=== PATIENT | male | born 1960 | race Caucasian/White ===

== ENCOUNTER 2016-06-13 06:30 | Day surgery (SDC) | payer OTHER ==
[2016-06-13] MEDS ORDERED: Lactated Ringers 1,000 ML IV SCH ×2 (07:00→08:45)
[2016-06-13] MEDS ORDERED: Lidocaine 2% 5 ML SDV ONE (07:11)
[2016-06-13] MEDS ORDERED: fentaNYL 100 MCG/2 ML SDV ONE ×2 (07:11→08:00)
[2016-06-13] MEDS ORDERED: Propofol 200 MG/20 ML SDV ONE ×2 (07:11→08:06)
--- NOTE | 2016-06-13 07:12 | PCM.PREANE ---
Preanesthetic Assessment - Anesthesia/Transfusion/Family Hx Anesthesia History: Prior Anesthesia Without Reaction Family History of Anesthesia Reaction: No Transfusion History: No Prior Transfusion(s) - Review of Systems General: No Symptoms Pulmonary: No Symptoms Cardiovascular: No Symptoms Gastrointestinal: No symptoms Neurological: No Symptoms Other: Reports: None - Physical Assessment NPO Status Date: 06/12/16 (except sip with meds this am) O2 Sat by Pulse Oximetry: 95 Respiratory Rate: 16 Vital Signs: Last Vital Signs Temp 36 C 06/13/16 06:40 Pulse 74 06/13/16 06:40 Resp 16 06/13/16 06:40 BP 138/86 06/13/16 06:40 Pulse Ox 95 06/13/16 06:40 Height: 1.88 m Weight: 147.871 kg ASA Class: 3 Mental Status: Alert & Oriented x3 Dentition: Reports: Normal Dentition Lungs: Clear to auscultation Cardiovascular: Regular Rate - Allergies Allergies/Adverse Reactions: Allergies Allergy/AdvReac Type Severity Reaction Status Date / Time Penicillins Allergy Cannot Verified 06/08/16 13:10 Remember - Acknowledgements Anesthesia Type Planned: MAC Pt an Appropriate Candidate for the Planned Anesthesia: Yes Alternatives and Risks of Anesthesia Discussed w Pt/Guardian: Yes Pt/Guardian Understands and Agrees with Anesthesia Plan: Yes PreAnesthesia Questionnaire HEENT History: Other HEENT History: wears glasses Cardiovascular History: Reports: High cholesterol, Hypertension Respiratory History: Reports: COPD, Sleep apnea Other Respiratory History: uses CPAP Gastrointestinal History: Reports: None Genitourinary History: Reports: None Musculoskeletal History: Reports: Fracture Other Musculoskeletal History: hx of fx hand Neurological History: Reports: None Other Neuro History: avm, surgically taken care of with gamma knife Psychiatric History: Reports: None Endocrine/Metabolic History: Reports: Diabetes, type II, Hypothyroidism, Obesity /BMI 30+ Hematologic History: Reports: None Immunologic History: Reports: None Oncologic (Cancer) History: Reports: None Dermatologic History: Reports: None - Infectious Disease History Infectious Disease History: Reports: None - Past Surgical History Head Surgeries/Procedures: Reports: None HEENT Surgical History: Reports: Tonsillectomy Cardiovascular Surgical History: Reports: Aneurysm Other Cardiovascular Surgeries/Procedures: hx of brain aneurysm (ABM), treated with Gamma Knife 14 years ago. No problems since Respiratory Surgical History: Reports: None GI Surgical History: Reports: Hernia, abdominal Other GI Surgeries/Procedures: hx of ventral hernia Male Surgical History: Reports: Vasectomy Endocrine Surgical History: Reports: None Neurological Surgical History: Reports: None Musculoskeletal Surgical History: Reports: Arthroscopic knee Oncologic Surgical History: Reports: None Dermatological Surgical History: Reports: None - SUBSTANCE USE Smoking Status *Q: Former Smoker Tobacco Use Within Last Twelve Months: No Second Hand Smoke Exposure: No Days Per Week of Alcohol Use: 0 Number of Drinks Per Day: 1 Total Drinks Per Week: 0 Recreational Drug Use History: No - HOME MEDS Home Medications: Home Meds Cyanocobalamin (Vitamin B-12) [B-12] 1 tab PO DAILY 07/28/14 [History] Fenofibrate 145 mg PO DAILY 07/28/14 [History] Hydrochlorothiazide 1 tab PO DAILY 07/28/14 [History] Levothyroxine Sodium [Levoxyl] 100 mcg PO DAILY 07/28/14 [History] atorvaSTATin [Lipitor] 40 mg PO BEDTIME 07/28/14 [History] metFORMIN [Glucophage] 1 tab PO BID 07/28/14 [History] Aspirin [Adult Low Dose Aspirin EC] 81 mg PO DAILY #30 tablet. 07/29/14 [Rx] Lisinopril 1 tab PO DAILY 06/08/16 [History] Umeclidinium Brm/Vilanterol Tr [Anoro Ellipta 62.5-25 Mcg INH] 1 puff INH DAILY 06/08/16 [History] - CURRENT (IN HOUSE) MEDS Current Meds: Current Medications Lactated Ringer's (Ringers, Lactated) 1,000 mls @ 125 mls/hr IV ASDIRECTED [facility] Last Admin: 06/13/16 06:42 Dose: 125 mls/hr Preanesthetic Assessment - ANESTHESIA/TRANSFUSION/FAMILY HX Anesthesia/Transfusion History: No Prior Transfusion(s), Prior Anesthesia Family History of Anesthesia Reaction: No - PHYSICAL ASSESSMENT O2 Sat by Pulse Oximetry: 95 RR: 16 Vital Signs: Last Vital Signs Temp 36 C 06/13/16 06:40 Pulse 74 06/13/16 06:40 Resp 16 06/13/16 06:40 BP 138/86 06/13/16 06:40 Pulse Ox 95 06/13/16 06:40 Height: 1.88 m Weight: 147.871 kg - ALLERGIES Allergies/Adverse Reactions: Allergies Allergy/AdvReac Type Severity Reaction Status Date / Time Penicillins Allergy Cannot Verified 06/08/16 13:10 Remember
--- NOTE | 2016-06-13 08:36 | PCM.OPNOTE ---
- General Post-Op/Procedure Note Date of Surgery/Procedure: 06/13/16 Operative Procedure(s): Colonoscopy with cold descending and cold rectal polypectomies Pre Op Diagnosis: Desire for colorectal cancer screening. Post-Op Diagnosis: Descending colon polyp. Rectal polyp. Anesthesia Technique: MAC (ASA III) Primary Surgeon: Marco A Hector Condition: Good Free Text/Narrative:: Dictation [id number]
--- NOTE | 2016-06-13 08:56 | OR ---
SURGEON: Marco A Hector M.D. DATE OF PROCEDURE: 06/13/2016 OPERATION PERFORMED: Colonoscopy with cold descending colon and cold rectal polypectomy. ANESTHESIA: MAC. ASA CLASSIFICATION: III. PREOPERATIVE DIAGNOSIS: Desire for colorectal cancer screening. POSTOPERATIVE DIAGNOSES: 1. Descending colon polyp. 2. Proximal rectal polyp. DESCRIPTION OF PROCEDURE: The patient was taken to the endoscopy room, positioned on the endoscopy table in the left lateral decubitus position. Time-out was called for appropriate identification of the patient and procedure. Monitored anesthesia care was provided. The colonoscope was inserted into the rectum and advanced with minimal difficulty to the cecum. Despite multiple maneuvers, we were never able to retroflex the colonoscope in the cecum. It was elected to withdraw the scope. The cecum was identified by both internal landmarks and external pressure. The colonoscope was then slowly withdrawn carefully visualizing the cecum, ascending colon, hepatic flexure, transverse colon, and splenic flexure. One polyp was encountered in the descending colon and removed with multiple bites of the cold biopsy forceps. The remainder of the descending colon and sigmoid colon again showed no tumors, polyps, or diverticula. No angiodysplastic changes or inflammatory bowel disease was noted. The colonoscope was then withdrawn to the proximal rectum where a second polyp was identified and again removed with the cold biopsy forceps. The colonoscope was withdrawn to the distal rectum and retroflexed to visualize the anal orifice from above. No tumors, polyps, or acute hemorrhoidal changes were noted. The colonoscope was then straightened, the rectum aspirated, and colonoscope was removed. The patient tolerated the procedure well and was taken to recovery room in stable condition. JUDITH / SVETLANA /[id number]
[2016-06-13 09:01] VITALS: BP 136/83
--- NOTE | 2016-06-13 10:06 | PCM.POSTAN ---
POST ANESTHESIA ASSESSMENT - MENTAL STATUS Mental Status: alert, oriented - RESPIRATORY Respiratory Status: respiratory rate WNL, airway patent - CARDIOVASCULAR CV Status: pulse rate WNL, blood pressure stable - GASTROINTESTINAL GI Status: no symptoms - POST OP HYDRATION Hydration Status: adequate & stable
--- NOTE | 2016-06-13 10:06 | PCM48HPAN ---
Post Anesthesia Note - EVALUATION WITHIN 48HRS OF ANESTHETIC Vital Signs in Normal Range: Yes Patient Participated in Evaluation: Yes Respiratory Function Stable: Yes Airway Patent: Yes Cardiovascular Function Stable: Yes Hydration Status Stable: Yes Pain Control Satisfactory: Yes Nausea and Vomiting Control Satisfactory: Yes Mental Status Recovered: Yes
== END 2016-06-13 09:27 | disposition home or self-care (01) ==
LOC: MW.SDS 06:30
PROVIDERS: ATTEND Surgery
PROC: 0DBM8ZZ Excision of Descending Colon, Via Natural or Artificial Opening Endoscopic (ICD-10-PCS; principal; 2016-06-13)
DX: Z12.11 Encounter for screening for malignant neoplasm of colon (principal); D12.4 Benign neoplasm of descending colon; K62.1 Rectal polyp; E11.9 Type 2 diabetes mellitus without complications; I10 Essential (primary) hypertension; E78.00 Pure hypercholesterolemia, unspecified; E78.5 Hyperlipidemia, unspecified; E03.9 Hypothyroidism, unspecified; E66.01 Morbid (severe) obesity due to excess calories; G47.33 Obstructive sleep apnea (adult) (pediatric); J44.9 Chronic obstructive pulmonary disease, unspecified; Z87.440 Personal history of urinary (tract) infections; Z87.891 Personal history of nicotine dependence; Z80.0 Family history of malignant neoplasm of digestive organs; Z88.0 Allergy status to penicillin; Z79.82 Long term (current) use of aspirin; Z79.84 Long term (current) use of oral hypoglycemic drugs; Z79.899 Other long term (current) drug therapy; Z98.52 Vasectomy status; Z90.89 Acquired absence of other organs; Z98.890 Other specified postprocedural states; Z68.41 Body mass index [BMI] 40.0-44.9, adult
CPT/HCPCS: 45380; J3010; J7120; 00810; 88305; J2704

== ENCOUNTER 2018-08-15 07:09 | Day surgery (SDC) | payer OTHER ==
[~2018-08-15 07:09] MED LIST: Lactated Ringers 1,000 ML IV SCH
[2018-08-15] MEDS ORDERED: Lidocaine 2% 5 ML SDV ONE (07:22)
[2018-08-15] MEDS ORDERED: Dexamethasone 4 MG/ML 5 ML MDV ONE (07:22)
[2018-08-15] MEDS ORDERED: Midazolam 1 MG/ML 2 ML SDV ONE (07:22)
[2018-08-15] MEDS ORDERED: fentaNYL 100 MCG/2 ML SDV ONE (07:22)
[2018-08-15] MEDS ORDERED: Propofol 200 MG/20 ML SDV ONE (07:22)
[2018-08-15] MEDS ORDERED: Ondansetron 4 MG/2 ML SDV ONE (07:22)
[2018-08-15] MEDS ORDERED: Lidocaine 1% 20 ML MDV ONE (07:34)
--- NOTE | 2018-08-15 07:59 | PCM.PREANE ---
<FannyOvi F - Last Filed: 08/15/18 08:04> Preanesthetic Assessment - Anesthesia/Transfusion/Family Hx Family History of Anesthesia Reaction: No - Review of Systems General: No Symptoms Pulmonary: No Symptoms Cardiovascular: No Symptoms Gastrointestinal: No Symptoms Neurological: No Symptoms Other: Reports: None - Physical Assessment NPO Status Date: 08/14/18 ASA Class: 3 Mental Status: Alert & Oriented x3 Airway Class: Mallampati = 2 Dentition: Reports: Normal Dentition ROM/Head Extension: Full Lungs: Clear to Auscultation, Normal Respiratory Effort Cardiovascular: Regular Rate, Regular Rhythm - Allergies Allergies/Adverse Reactions: Allergies Allergy/AdvReac Type Severity Reaction Status Date / Time Penicillins Allergy Cannot Verified 08/09/18 07:57 Remember - Blood Blood Available: No - Anesthesia Plan Pre-Op Medication Ordered: None - Acknowledgements Anesthesia Type Planned: General Anesthesia, Regional Block Pt an Appropriate Candidate for the Planned Anesthesia: Yes Alternatives and Risks of Anesthesia Discussed w Pt/Guardian: Yes Pt/Guardian Understands and Agrees with Anesthesia Plan: Yes Additional Comments: anes prob list: COPD- FEV1=67% ptedicted, LBC70-46=90% predicted. rm air spo2=94 , no diffusion defect. SEVERO- AHI=9.8 (mild), does not use CPAP although it was recommended. HTN, thyroid replacement, DM2- sugar today 140 PLAN: GET, not a candidate for ISB unless pt willing to be admitted overnight with hospital full face CPAP mask. PreAnesthesia Questionnaire - HOME MEDS Home Medications: Home Meds Cyanocobalamin (Vitamin B-12) [B-12] 1 tab PO DAILY 07/28/14 [History] Fenofibrate 160 mg PO DAILY 07/28/14 [History] Levothyroxine Sodium [Levoxyl] 100 mcg PO DAILY 07/28/14 [History] atorvaSTATin [Lipitor] 40 mg PO BEDTIME 07/28/14 [History] hydroCHLOROthiazide [Hydrochlorothiazide] 1 tab PO DAILY 07/28/14 [History] metFORMIN [Glucophage] 1 tab PO BID 07/28/14 [History] Aspirin [Adult Low Dose Aspirin EC] 81 mg PO DAILY #30 tablet. 07/29/14 [Rx] Lisinopril 10 mg PO DAILY 06/08/16 [History] Diclofenac Sodium [Voltaren] 75 mg PO BID PRN 08/09/18 [History] Empagliflozin [Jardiance] 25 mg PO DAILY 08/09/18 [History] Glycopyrrolate/Formoterol Fum [Bevespi Aerosphere Inhaler] 2 puff INH BID [History] - CURRENT (IN HOUSE) MEDS Current Meds: Current Medications Hydrocodone Bitart/Acetaminophen ([place] 325-10 Mg) 1 - 2 tab PO Q4H PRN PRN Reason: Pain Clindamycin Phosphate 900 mg/ (Sodium Chloride) 56 mls @ 100 mls/hr IV ONCALL TABATHA Lactated Ringer's (Ringers, Lactated) 1,000 mls @ 100 mls/hr IV ASDIRECTED [facility] Ketorolac Tromethamine (Toradol) 10 mg PO Q6H PRN PRN Reason: Pain Stop: 08/20/18 10:01 Discontinued Medications Dexamethasone (Dexamethasone) Confirm Administered Dose 20 mg .ROUTE .STK-MED ONE Stop: 08/15/18 07:23 Fentanyl (Sublimaze) Confirm Administered Dose 100 mcg .ROUTE .STK-MED ONE Stop: 08/15/18 07:23 Acetaminophen (Ofirmev) Confirm Administered Dose 100 mls @ as directed IV .STK- MED ONE Stop: 08/15/18 07:35 Lidocaine (Xylocaine-Mpf 2%) Confirm Administered Dose 5 ml .ROUTE .STK-MED ONE Stop: 08/15/18 07:23 Lidocaine HCl (Xylocaine 1%) Confirm Administered Dose 20 ml .ROUTE .STK-MED ONE Stop: 08/15/18 07:35 Midazolam HCl (Versed 1 Mg/Ml) Confirm Administered Dose 2 mg .ROUTE .STK-MED ONE Stop: 08/15/18 07:23 Ondansetron HCl (Zofran) Confirm Administered Dose 4 mg .ROUTE .STK-MED ONE Stop: 08/15/18 07:23 Propofol (Diprivan 20 Ml) Confirm Administered Dose 200 mg .ROUTE .STK-MED ONE Stop: 08/15/18 07:23 Succinylcholine Chloride (Succinylcholine Chloride) Confirm Administered Dose 200 mg .ROUTE .STK-MED ONE Stop: 08/15/18 07:24 <[place] S - Last Filed: 08/15/18 09:49> Preanesthetic Assessment - Anesthesia/Transfusion/Family Hx Anesthesia History: Prior Anesthesia Without Reaction Transfusion History: No Prior Transfusion(s) - Physical Assessment Height: 1.88 m Weight: 149.685 kg - Acknowledgements Anesthesia Type Planned: General Anesthesia, Regional Block Pt an Appropriate Candidate for the Planned Anesthesia: Yes Alternatives and Risks of Anesthesia Discussed w Pt/Guardian: Yes Pt/Guardian Understands and Agrees with Anesthesia Plan: Yes PreAnesthesia Questionnaire HEENT History: Reports: Other (See Below) Other HEENT History: wears glasses for driving Cardiovascular History: Reports: High Cholesterol, Hypertension Respiratory History: Reports: COPD, Sleep Apnea Other Respiratory History: does not use CPAP Gastrointestinal History: Reports: Colon Polyp Genitourinary History: Reports: None Musculoskeletal History: Reports: Fracture Other Musculoskeletal History: hx of fx knuckle on rt hand Neurological History: Reports: None Other Neuro History: ABM, surgically taken care of with gamma knife Psychiatric History: Reports: None Endocrine/Metabolic History: Reports: Diabetes, Type II, Hypothyroidism, Obesity /BMI 30+ Hematologic History: Reports: None Immunologic History: Reports: None Oncologic (Cancer) History: Reports: None Dermatologic History: Reports: None - Infectious Disease History Infectious Disease History: Reports: None - Past Surgical History Head Surgeries/Procedures: Reports: None HEENT Surgical History: Reports: Tonsillectomy Cardiovascular Surgical History: Reports: Aneurysm Other Cardiovascular Surgeries/Procedures: hx of brain aneurysm (ABM), treated with Gamma Knife. No problems since Respiratory Surgical History: Reports: None GI Surgical History: Reports: Colonoscopy, Hernia, Abdominal Other GI Surgeries/Procedures: hx of ventral hernia repair Male Surgical History: Reports: Vasectomy Endocrine Surgical History: Reports: None Neurological Surgical History: Reports: None Musculoskeletal Surgical History: Reports: Arthroscopic Knee Oncologic Surgical History: Reports: None Dermatological Surgical History: Reports: None - SUBSTANCE USE Smoking Status *Q: Former Smoker Recreational Drug Use History: No
[2018-08-15] MEDS ORDERED: Clindamycin Phosphate in D5W 900 MG in Premix Bag 1 BAG IV SCH ×2 (08:52)
[2018-08-15] MEDS ORDERED: HYDROmorphone 2 MG/ML Syringe ONE (09:19)
[2018-08-15] MEDS ORDERED: Esmolol 100 MG/10 ML SDV ONE (09:35)
[2018-08-15] MEDS ORDERED: Ondansetron 4 MG/2 ML SDV IVPUSH PRN (09:52)
[2018-08-15] MEDS ORDERED: HYDROmorphone 2 MG/ML SDV IVPUSH PRN (09:52)
[2018-08-15] MEDS ORDERED: Acetaminophen/HYDROcodone 325-10 MG Tab PO PRN (10:00)
[2018-08-15] MEDS ORDERED: Ketorolac 10 MG Tab PO PRN (10:00)
[2018-08-15] MEDS ORDERED: Neostigmine Methylsulfate 1 MG/ML 5 ML Syringe ONE (10:14)
[2018-08-15] MEDS ORDERED: Glycopyrrolate 0.2 MG/ML SDV ONE (10:14)
--- NOTE | 2018-08-15 11:27 | PCM.OPNOTE ---
- General Post-Op/Procedure Note Date of Surgery/Procedure: 08/15/18 Operative Procedure(s): R shoulder arthroscopy with SAD, extensive debridement, DCE, and RTCR Post-Op Diagnosis: R shoulder. 1. impingement. 2. AC joint arthritis. 3. biceps tendonopathy. 4. deg anterior labral tear. 5. RTCR Anesthesia Technique: General ET Tube Primary Surgeon: Vanessa Tatum Director Strategic Planning: Marika Pruett Director Strategic Planning: Kurtis Pearson Jr EBL in mLs: 10 Condition: Good Free Text/Narrative:: #[id number]
[2018-08-15] MEDS ORDERED: fentaNYL 100 MCG/2 ML SDV IVPUSH PRN (12:41)
[2018-08-15] MEDS ORDERED: Ketorolac 30 MG/ML SDV IVPUSH ONE (12:42)
--- NOTE | 2018-08-15 12:58 | OR ---
SURGEON: Vanessa Tatum MD DATE OF PROCEDURE: 08/15/2018 PREOPERATIVE DIAGNOSES: 1. Right shoulder impingement syndrome. 2. Right shoulder acromioclavicular joint arthritis. 3. Right shoulder biceps tendinopathy. 4. Right shoulder rotator cuff tear. POSTOPERATIVE DIAGNOSES: 1. Right shoulder impingement syndrome. 2. Right shoulder acromioclavicular joint arthritis. 3. Right shoulder biceps tendinopathy. 4. Right shoulder rotator cuff tear. 5. Right shoulder degenerative anterior labral tear. PROCEDURE: Right shoulder arthroscopy with: 1. Subacromial decompression with release of coracoacromial ligament and acromioplasty. 2. Extensive debridement including debridement of degenerative anterior labral tear and biceps tenotomy. 3. Arthroscopic distal clavicle excision. 4. Arthroscopic rotator cuff repair. PRIMARY SURGEON: Vanessa Tatum MD. ASSISTANTS: Marika Pruett, GASFITTER-C, and Kurtis Pearson DO, PGY-2. Assistance was needed for preoperative positioning, intraoperative positioning, retraction, and assistance with suture management. ANESTHESIA: General. ESTIMATED BLOOD LOSS: 10 mL. TOURNIQUET TIME: 0 minutes. COMPLICATIONS: None. DVT PROPHYLAXIS: PAS boots to bilateral lower extremities. IMPLANTS USED: Three [employer] 2.9 mm JuggerKnot anchors and one [employer] Quattro Link anchor. BRIEF HISTORY: Juan is a 58-year-old male, who has had complaint of progressive right shoulder pain. An MRI was obtained. Due to his lack of response to conservative treatment, I did recommend surgical intervention. The risks and goals of procedure were discussed with the patient and were documented preoperatively. He agreed to proceed. DESCRIPTION OF PROCEDURE: The patient was properly identified and brought to the operating room. He was transferred from the OR cart and placed on the operating table in a supine position. General anesthesia was administered. After adequate anesthesia was obtained, he was placed into a beach-chair type position. His head was secured. Care was taken to pad all bony prominences. The right upper extremity was then prepped in standard fashion using ChloraPrep solution. It was then sterilely draped. A time-out was performed to ensure correct site and procedure. Preoperative antibiotics were given. The surgical site had been marked preoperatively. A marking pen was used to identify the bony landmarks. Approximately, 30 mL of normal saline was introduced into the glenohumeral joint. A posterior portal was then established. Blunt trocar and cannula were introduced into the glenohumeral joint. Camera, inflow, and outflow were assembled. The rotator interval was identified. An anterior portal was established. A probe was inserted. The subscapularis was visualized. He did have a split thickness tear along the superior margin of the supraspinatus, however, the tendon was well attached to the humeral head. It was extensively probed and found to be stable. No loose bodies were identified within the subscapular recess. The biceps was then visualized. It was pulled into the joint to expose more of the distal tendon. Extensive longitudinal fraying was noted. I elected to proceed with the biceps tenotomy. Electrocautery was used to amputate the biceps tendon at its insertion onto the glenoid. The biceps retracted easily into the bicipital tendon sheath. The site of attachment was smoothed. The anterior labrum was then inspected. He did have some degenerative fraying of this and this was treated with electrocautery. The remainder of the labrum appeared intact. The joint surfaces were then inspected. Diffuse grade 2 to grade 3 chondromalacia was noted. No full- thickness cartilage lesions were noted. The posterior labrum appeared intact. I then entered the axillary pouch. No loose bodies were identified. The arm was then brought into an abducted and externally rotated position. The supraspinatus showed a full-thickness tear with mild fraying of the infraspinatus as well with very little remaining attachment. The arm was then brought back into a neutral position. Instruments were removed from the glenohumeral joint. The blunt trocar and cannula were then introduced into the subacromial space. A lateral portal was established. Extensive bursectomy was performed. He did have a large amount of bursal tissue present. This allowed for visualization of the rotator cuff. A full-thickness tear was noted of the supraspinatus and nearly full-thickness tear of the infraspinatus was noted. A cuff grasper was used, and I was able to reapproximate the cuff back to its footprint. The coracoacromial ligament was then released anteriorly. An acromioplasty was performed. He had extensive spurring along the inferior margin of the acromion. The distal clavicle was also visualized. He did have a spur formation in this area as well. An arthroscopic distal clavicle excision was then performed. Approximately, 8 mm of bone was removed from the distal clavicle. This appeared to remove the bony spurs from the distal clavicle. The superior capsule of the acromioclavicular joint was left intact. He did have a few small loose bony fragments which were also removed. I then returned to the site of the cuff tear. The bone just lateral to the articular margin was roughened with the bur and a good bleeding bone bed was identified. Three 2.9 mm JuggerKnot were then placed in anterior to posterior fashion along the lateral margin of the articular surface. As we were attempting to arrange the sutures, the sutures did pull out of the posterior anchor. The anchors were double loaded, and I felt that we had adequate fixation with the remaining anchors. The sutures were then passed through the rotator cuff in an [id number] fashion. The anterior rotator cuff musculature was less robust and did have some fatty infiltration to it. The remainder of the cuff appeared quite good. These sutures were then tied in a [id number] fashion. This provided good compression of the cuff to the underlying bone. There was no undue tension on the repair. I elected to proceed with a lateral row as well. A Quattro Link anchor was placed incorporating all of the sutures from the rotator cuff repair. This provided additional compression at the footprint site. The cuff repair was then probed. It appeared to be nearly watertight and easily reapproximated to its original footprint. The suture ends were then trimmed. The instruments were removed from the shoulder. The portal sites were closed with 3-0 nylon. Xeroform gauze was placed over the wound and a bulky dressing was applied. He was placed into a shoulder immobilizer. He was awakened from his anesthetic and transferred back to the operating room cart. He was brought to recovery room in stable condition. All needle and sponge counts were correct. JAYCOB / SVETLANA /[id number] SANDRA
--- NOTE | 2018-08-15 13:18 | PCM.POSTAN ---
POST ANESTHESIA ASSESSMENT - MENTAL STATUS Mental Status: Alert, Oriented - RESPIRATORY Respiratory Status: Respiratory Rate WNL, Airway Patent, O2 Saturation Stable, Supplemental Oxygen - CARDIOVASCULAR CV Status: Pulse Rate WNL, Blood Pressure Stable - GASTROINTESTINAL GI Status: No Symptoms - PAIN Pain Score: 6 - POST OP HYDRATION Hydration Status: Adequate & Stable - OBSERVATIONS Free Text/Narrative:: no anesthesia problems
--- NOTE | 2018-08-15 15:15 | PCM48HPAN ---
Post Anesthesia Note - EVALUATION WITHIN 48HRS OF ANESTHETIC Vital Signs in Normal Range: Yes Patient Participated in Evaluation: Yes Respiratory Function Stable: Yes Airway Patent: Yes Cardiovascular Function Stable: Yes Hydration Status Stable: Yes Pain Control Satisfactory: Yes Nausea and Vomiting Control Satisfactory: Yes Mental Status Recovered: Yes Resp Rate: 18 - COMMENTS/OBSERVATIONS Free Text/Narrative:: no anesthesia problems
[2018-08-15 16:37] VITALS: BP 136/86
== END 2018-08-15 15:40 | disposition home or self-care (01) ==
LOC: MW.SDS 07:09
PROVIDERS: ATTEND Orthopaedic Surgery
DX: M75.121 Complete rotator cuff tear or rupture of right shoulder, not specified as traumatic (principal); M19.011 Primary osteoarthritis, right shoulder; M75.41 Impingement syndrome of right shoulder; M75.81 Other shoulder lesions, right shoulder; M94.211 Chondromalacia, right shoulder; M67.813 Other specified disorders of tendon, right shoulder; S43.491A Other sprain of right shoulder joint, initial encounter; I10 Essential (primary) hypertension; E11.9 Type 2 diabetes mellitus without complications; E78.00 Pure hypercholesterolemia, unspecified; E03.9 Hypothyroidism, unspecified; E66.01 Morbid (severe) obesity due to excess calories; J43.9 Emphysema, unspecified; G47.33 Obstructive sleep apnea (adult) (pediatric); X58.XXXA Exposure to other specified factors, initial encounter; Z68.41 Body mass index [BMI] 40.0-44.9, adult; Z88.0 Allergy status to penicillin; Z87.891 Personal history of nicotine dependence; Z79.84 Long term (current) use of oral hypoglycemic drugs; Z79.82 Long term (current) use of aspirin; Z79.899 Other long term (current) drug therapy
CPT/HCPCS: 29823; 29824; 29826; 29827; A4217; A9270; C1713; J0131; J0330; J1170; J1885; J2001; J2250; J2405; J2704; J3010; J3490; J7120; 88304; J1100

== ENCOUNTER 2020-04-10 09:29 | Day surgery (SDC) | payer OTHER ==
[~2020-04-10 09:29] MED LIST changes: +Lidocaine 2% 5 ML SDV ONE; +Propofol 200 MG/20 ML SDV ONE; +fentaNYL 100 MCG/2 ML SDV ONE
--- NOTE | 2020-04-10 10:44 | PCM.PREANE ---
Preanesthetic Assessment - Anesthesia/Transfusion/Family Hx Anesthesia History: Prior Anesthesia Without Reaction Family History of Anesthesia Reaction: No Transfusion History: No Prior Transfusion(s) Intubation History: Unknown - Review of Systems General: No Symptoms Pulmonary: No Symptoms Cardiovascular: No Symptoms Gastrointestinal: No Symptoms Neurological: No Symptoms Other: Reports: None - Physical Assessment Vital Signs: Last Vital Signs Temp 36.4 C 04/10/20 09:50 Pulse 79 04/10/20 09:50 Resp 15 04/10/20 09:50 BP 127/75 04/10/20 09:50 Pulse Ox 93 L 04/10/20 09:50 Height: 6 ft 2 in Weight: 136.078 kg ASA Class: 3 Mental Status: Alert & Oriented x3 Airway Class: Mallampati = 2 Dentition: Reports: Normal Dentition Thyro-Mental Finger Breadths: 3 Mouth Opening Finger Breadths: 3 ROM/Head Extension: Full Lungs: Clear to Auscultation, Normal Respiratory Effort Cardiovascular: Regular Rate, Regular Rhythm - Allergies Allergies/Adverse Reactions: Allergies Allergy/AdvReac Type Severity Reaction Status Date / Time Penicillins Allergy Cannot Verified 04/07/20 08:38 Remember - Blood Blood Available: No - Anesthesia Plan Pre-Op Medication Ordered: None - Acknowledgements Anesthesia Type Planned: MAC Pt an Appropriate Candidate for the Planned Anesthesia: Yes Alternatives and Risks of Anesthesia Discussed w Pt/Guardian: Yes Pt/Guardian Understands and Agrees with Anesthesia Plan: Yes PreAnesthesia Questionnaire HEENT History: Reports: Other (See Below) Other HEENT History: wears glasses for driving/reading Cardiovascular History: Reports: Aneurysm, High Cholesterol, Hypertension Respiratory History: Reports: COPD (mild/moderate), Sleep Apnea Other Respiratory History: does not use CPAP Gastrointestinal History: Reports: Colon Polyp Genitourinary History: Reports: BPH Musculoskeletal History: Reports: Fracture Other Musculoskeletal History: hx of fx knuckle on rt hand Neurological History: Reports: Other (See Below) Other Neuro History: ABM, surgically taken care of with gamma knife Psychiatric History: Reports: None Endocrine/Metabolic History: Reports: Diabetes, Type II, Hypothyroidism, Obes ity/BMI 30+ (BMI 38.5) Hematologic History: Reports: None Immunologic History: Reports: None Oncologic (Cancer) History: Reports: None Dermatologic History: Reports: None - Infectious Disease History Infectious Disease History: Reports: SARS (Covid 19 test positive 12/30/19) - Past Surgical History Head Surgeries/Procedures: Reports: None HEENT Surgical History: Reports: Tonsillectomy Cardiovascular Surgical History: Reports: Aneurysm Other Cardiovascular Surgeries/Procedures: hx of brain aneurysm (ABM), treated with Gamma Knife. No problems since Respiratory Surgical History: Reports: None GI Surgical History: Reports: Colonoscopy (3 years ago), Hernia, Abdominal Other GI Surgeries/Procedures: hx of ventral hernia repair Male Surgical History: Reports: Vasectomy Endocrine Surgical History: Reports: None Neurological Surgical History: Reports: None Musculoskeletal Surgical History: Reports: Arthroscopic Knee, Shoulder Surgery Other Musculoskeletal Surgeries/Procedures:: RTCR-right Oncologic Surgical History: Reports: None Dermatological Surgical History: Reports: None - SUBSTANCE USE Tobacco Use Within Last Twelve Months: Other (See Below) - HOME MEDS Home Medications: Home Meds Cyanocobalamin (Vitamin B-12) [B-12] 1 tab PO DAILY 07/28/14 [History] Fenofibrate 160 mg PO DAILY 07/28/14 [History] Levothyroxine Sodium [Levoxyl] 100 mcg PO DAILY 07/28/14 [History] atorvaSTATin [Lipitor] 40 mg PO BEDTIME 07/28/14 [History] hydroCHLOROthiazide [Hydrochlorothiazide] 25 mg PO DAILY 07/28/14 [History] metFORMIN [Glucophage] 1 tab PO BID 07/28/14 [History] Aspirin [Adult Low Dose Aspirin EC] 81 mg PO DAILY #30 tablet. 07/29/14 [Rx] Lisinopril 10 mg PO BID 06/08/16 [History] Empagliflozin [Jardiance] 25 mg PO DAILY 08/09/18 [History] Glycopyrrolate/Formoterol Fum [Bevespi Aerosphere Inhaler] 2 puff INH BID 08/09/18 [History] Albuterol Sulfate [Albuterol Sulfate Hfa] 2 puff INH QID PRN 04/07/20 [History] Nitroglycerin 0.4 mg SL ASDIRECTED PRN 04/07/20 [History] Semaglutide [Ozempic] 1 mg SUBCUT WEEKLY 04/07/20 [History] Tamsulosin HCl [Flomax] 0.4 mg PO DAILY 04/07/20 [History] - CURRENT (IN HOUSE) MEDS Current Meds: Current Medications Lactated Ringer's (Ringers, Lactated) 1,000 mls @ 125 mls/hr IV ASDIRECTED TABATHA Last Admin: 04/10/20 10:20 Dose: 125 mls/hr Documented by: Discontinued Medications Fentanyl (Sublimaze) Confirm Administered Dose 100 mcg .ROUTE .STK-MED ONE Stop: 04/10/20 08:56 Lidocaine (Xylocaine-Mpf 2%) Confirm Administered Dose 5 ml .ROUTE .STK-MED ONE Stop: 04/10/20 08:55 Propofol (Diprivan 20 Ml) Confirm Administered Dose 400 mg .ROUTE .STK-MED ONE Stop: 04/10/20 08:56
[2020-04-10] MEDS ORDERED: Glycopyrrolate 0.2 MG/ML SDV ONE (11:02)
[2020-04-10] MEDS ORDERED: ePHEDrine 50 MG/ML SDV ONE (11:06)
[2020-04-10] MEDS ORDERED: Propofol 200 MG/20 ML SDV ONE (11:18)
--- NOTE | 2020-04-10 11:41 | PCM.OPNOTE ---
- General Post-Op/Procedure Note Date of Surgery/Procedure: 04/10/20 Operative Procedure(s): Colonoscopy Pre Op Diagnosis: Change in bowel habits. Personal history of colon polyps. Post-Op Diagnosis: No evidence of neoplasia Anesthesia Technique: MAC (ASA III) Primary Surgeon: Marco A Hector Condition: Good Free Text/Narrative:: DICTATION [id number] CPT CODE 80255
[2020-04-10] MEDS ORDERED: Lactated Ringers 1,000 ML IV SCH (11:45)
--- NOTE | 2020-04-10 11:58 | PCM.POSTAN ---
POST ANESTHESIA ASSESSMENT - MENTAL STATUS Mental Status: Alert, Oriented - VITAL SIGNS Vital Signs: Last Vital Signs Temp 36.4 C 04/10/20 09:50 Pulse 79 04/10/20 11:49 Resp 21 H 04/10/20 11:49 BP 100/64 04/10/20 11:49 Pulse Ox 93 L 04/10/20 11:49 - RESPIRATORY Respiratory Status: Respiratory Rate WNL, Airway Patent, O2 Saturation Stable - CARDIOVASCULAR CV Status: Pulse Rate WNL, Blood Pressure Stable - GASTROINTESTINAL GI Status: No Symptoms - PAIN Pain Score: 0 - POST OP HYDRATION Hydration Status: Adequate & Stable - OBSERVATIONS Free Text/Narrative:: No anesthesia problems
[2020-04-10 12:12] VITALS: BP 111/67; PULSE 71
--- NOTE | 2020-04-10 12:18 | PCM48HPAN ---
Post Anesthesia Note - EVALUATION WITHIN 48HRS OF ANESTHETIC Vital Signs in Normal Range: Yes Patient Participated in Evaluation: Yes Respiratory Function Stable: Yes Airway Patent: Yes Cardiovascular Function Stable: Yes Hydration Status Stable: Yes Pain Control Satisfactory: Yes Nausea and Vomiting Control Satisfactory: Yes Mental Status Recovered: Yes Vital Signs: Last Vital Signs Temp 36.2 C 04/10/20 11:58 Pulse 71 04/10/20 11:58 Resp 14 04/10/20 11:58 BP 111/67 04/10/20 11:58 Pulse Ox 94 L 04/10/20 11:58 - COMMENTS/OBSERVATIONS Free Text/Narrative:: No anesthesia problems
--- NOTE | 2020-04-10 12:25 | OR ---
SURGEON: Marco A Hector M.D. DATE OF PROCEDURE: 04/10/2020 OPERATION PERFORMED: Colonoscopy. PRIMARY SURGEON: Marco A Hector M.D. ANESTHESIA: MAC. ASA CLASSIFICATION: III. PREOPERATIVE DIAGNOSES: 1. Change in bowel habits. 2. Personal history of colon polyps. POSTOPERATIVE DIAGNOSIS: No evidence of neoplasia. DESCRIPTION OF PROCEDURE: The patient was taken to the endoscopy room and positioned on the endoscopy table in the left lateral decubitus position. Time-out was called for appropriate identification of the patient and procedure. Monitored anesthesia care was provided. The colonoscope was inserted into the rectum and advanced with minimal difficulty to the cecum. The cecum was identified by internal landmarks and external pressure. Despite multiple maneuvers, we could not retroflex the colonoscope to visualize the ascending colon from below. The colonoscope was then straightened and slowly withdrawn. The prep was excellent. The cecum, ascending colon, hepatic flexure, transverse colon, splenic flexure, descending colon, sigmoid colon, and rectum were very well visualized. No tumors, polyps, diverticula, or angiodysplastic changes were noted anywhere throughout the entire length of the large intestine. There was no evidence of inflammatory bowel disease. Once the colonoscope was withdrawn to the rectum, it was retroflexed to visualize the anal orifice from above. Again, no tumors or polyps were seen and there were no acute hemorrhoidal changes. The colonoscope was then straightened, the rectum aspirated, and the colonoscope removed. The patient tolerated the procedure well and was taken to recovery room in stable condition. JUDITH / SVETLANA /[id number]
== END 2020-04-10 12:31 | disposition home or self-care (01) ==
LOC: MW.SDS 09:29
PROVIDERS: ATTEND Surgery
DX: R19.4 Change in bowel habit (principal); E78.00 Pure hypercholesterolemia, unspecified; I10 Essential (primary) hypertension; J44.9 Chronic obstructive pulmonary disease, unspecified; E11.9 Type 2 diabetes mellitus without complications; E03.9 Hypothyroidism, unspecified; E66.9 Obesity, unspecified; Z68.38 Body mass index [BMI] 38.0-38.9, adult; Z98.890 Other specified postprocedural states; Z79.899 Other long term (current) drug therapy; Z79.82 Long term (current) use of aspirin; Z79.890 Hormone replacement therapy; Z86.010 Personal history of colon polyps; Z88.0 Allergy status to penicillin; Z79.84 Long term (current) use of oral hypoglycemic drugs
CPT/HCPCS: 45378; J2001; J2704; J3010; J3490; J7120; 00811

== ENCOUNTER 2022-06-03 13:18 | Observation (INO) | payer OTHER ==
[2022-06-03] MEDS ORDERED: Sodium Chloride 0.9% 1,000 ML IV ONE ×2 (13:37→16:38)
[2022-06-03] MEDS ORDERED: methylPREDNISolone Sodium Succinate 125 MG/2 ML SDV IVPUSH ONE (13:37)
[2022-06-03] MEDS ORDERED: Ondansetron 4 MG/2 ML SDV IVPUSH ONE (13:40)
[2022-06-03] MEDS ORDERED: Albuterol 0.083% 2.5 MG/3 ML Neb Soln NEB ONE (13:52)
[2022-06-03] MEDS ORDERED: Cefepime 2 GM in Sodium Chloride 0.9% 50 ML IV ONE (14:08)
[2022-06-03 14:16] LABS: POTASSIUM,K 4.9 mmol/L (3.5-5.1)
[2022-06-03 14:30] LABS: CORONAVIRUS COVID-19 NAA NEGATIVE (NEGATIVE); INFLUENZA A NAA NEGATIVE (NEGATIVE); INFLUENZA B NAA NEGATIVE (NEGATIVE)
[2022-06-03] MEDS ORDERED: Iopamidol 755 MG/ML 500 ML Multipack Bottle IVPUSH ONE (14:51)
[2022-06-03] MEDS ORDERED: VANCOmycin 2 GM/400 ML 2 GM in Premix Bag 1 BAG IV ONE ×2 (15:15→20:00)
[2022-06-03] MEDS ORDERED: Glucagon,Human Recombinant 1 MG Vial IM PRN (18:57)
[2022-06-03] MEDS ORDERED: 50% Dextrose in Water 50 ML Syringe IVPUSH PRN (18:57)
[2022-06-03] MEDS: Sodium Chloride 0.9% 1,000 ML IV SCH (19:12)
[2022-06-04] MEDS: Cefepime 2 GM in Sodium Chloride 0.9% 50 ML IV SCH ×2 (01:54→09:20)
[2022-06-04] MEDS: Sodium Chloride 0.9% 1,000 ML IV SCH (01:57)
[2022-06-04 06:47] LABS: CARBON DIOXIDE,CO2 21.3 mmol/L (21.0-32.0)
[2022-06-04] MEDS ORDERED: Insulin Aspart 100 Units/ML 3 ML Pen SUBCUT SCH (07:30)
[2022-06-04 07:35] VITALS: BP 117/57; PULSE 85
== END 2022-06-04 11:12 | disposition home or self-care (01) ==
LOC: MW.ED 13:18 → MW.MS 16:44
PROVIDERS: ADMIT Internal Medicine; ATTEND Internal Medicine
DX: R19.7 Diarrhea, unspecified (principal); I10 Essential (primary) hypertension; E11.9 Type 2 diabetes mellitus without complications; J44.9 Chronic obstructive pulmonary disease, unspecified; E78.5 Hyperlipidemia, unspecified; E78.00 Pure hypercholesterolemia, unspecified; G47.30 Sleep apnea, unspecified; E03.9 Hypothyroidism, unspecified; E66.9 Obesity, unspecified; N40.0 Benign prostatic hyperplasia without lower urinary tract symptoms; K76.0 Fatty (change of) liver, not elsewhere classified; N32.89 Other specified disorders of bladder; Z88.0 Allergy status to penicillin; Z79.899 Other long term (current) drug therapy; Z79.84 Long term (current) use of oral hypoglycemic drugs; Z79.890 Hormone replacement therapy; Z98.890 Other specified postprocedural states; Z87.891 Personal history of nicotine dependence; Z20.822 Contact with and (suspected) exposure to COVID-19; Z86.16 Personal history of COVID-19; W19.XXXA Unspecified fall, initial encounter
CPT/HCPCS: 0240U; 36415; 71045; 71275; 74177; 80053; 80202; 81001; 82009; 82803; 82947; 83036; 83605; 83690; 83735; 84484; 85025; 87040; 96361; 96365; 96366; 96367; 96375; 99285; G0378; J0692; J2405; J3370; J7030; J7050; Q9967; 99221; J7620-GY

== ENCOUNTER 2022-06-04 12:19 | Inpatient (IN) | payer OTHER ==
[2022-06-04] MEDS ORDERED: Albuterol 8 GM Inhaler INH PRN (14:22)
[2022-06-04] MEDS: metFORMIN 500 MG Tab PO SCH (20:07)
[2022-06-04] MEDS: atorvaSTATin 40 MG Tab PO SCH (20:07)
[2022-06-05 06:20] LABS: CARBON DIOXIDE,CO2 24.6 mmol/L (21.0-32.0); POTASSIUM,K 3.9 mmol/L (3.5-5.1)
[2022-06-05] MEDS: Levothyroxine 100 MCG Tab PO SCH ×2 (06:23→06:58)
[2022-06-05] MEDS: metFORMIN 500 MG Tab PO SCH ×2 (08:43→20:49)
[2022-06-05] MEDS: Empagliflozin 25 MG Tablet PO SCH (08:44)
[2022-06-05] MEDS: atorvaSTATin 40 MG Tab PO SCH (20:50)
[2022-06-06] MEDS: Levothyroxine 100 MCG Tab PO SCH ×2 (06:17→07:00)
[2022-06-06 06:45] LABS: CARBON DIOXIDE,CO2 29.1 mmol/L (21.0-32.0); POTASSIUM,K 4.3 mmol/L (3.5-5.1)
[2022-06-06] MEDS: metFORMIN 500 MG Tab PO SCH (08:00)
[2022-06-06] MEDS: Empagliflozin 25 MG Tablet PO SCH (08:01)
[2022-06-06] MEDS ORDERED: Lisinopril 10 MG Tab PO SCH (09:15)
[2022-06-06] MEDS ORDERED: Hydrochlorothiazide 25 MG Tab PO SCH (09:15)
[2022-06-06 16:22] VITALS: BP 139/78; PULSE 77
== END 2022-06-06 16:20 | disposition home or self-care (01) | DRG 392 ==
LOC: MW.MS 12:19
PROVIDERS: ADMIT Internal Medicine; ATTEND Internal Medicine
DX: K52.9 Noninfective gastroenteritis and colitis, unspecified (principal); N40.0 Benign prostatic hyperplasia without lower urinary tract symptoms; E78.00 Pure hypercholesterolemia, unspecified; I10 Essential (primary) hypertension; J44.9 Chronic obstructive pulmonary disease, unspecified; G47.30 Sleep apnea, unspecified; E11.9 Type 2 diabetes mellitus without complications; E03.9 Hypothyroidism, unspecified; Z87.891 Personal history of nicotine dependence; E66.9 Obesity, unspecified; Z79.84 Long term (current) use of oral hypoglycemic drugs; Z79.899 Other long term (current) drug therapy; Z90.89 Acquired absence of other organs; Z98.890 Other specified postprocedural states; Z68.39 Body mass index [BMI] 39.0-39.9, adult; Z86.010 Personal history of colon polyps; Z98.52 Vasectomy status; Z79.890 Hormone replacement therapy
CPT/HCPCS: 36415; 80048; 80202; 82947; 85025; 85027; A9270-GY; J3370; J7050

== ENCOUNTER 2022-08-09 08:59 | Observation (INO) | payer OTHER ==
[2022-08-09] MEDS ORDERED: Sodium Chloride 0.9% 1,000 ML IV ONE ×3 (10:08→10:41)
[2022-08-09 10:12] LABS: BASOPHILS PERCENT AUTO 0.2 % (0.0-1.5); EOSINOPHILS ABSOLUTE AUTO 0.1 K/uL (0.0-0.7); HEMATOCRIT 47.1 % (38.0-50.0); HEMOGLOBIN 16.2 g/dL (13.0-17.0); LYMPHOCYTES ABSOLUTE AUTO 0.9 K/uL (0.6-2.4); LYMPHOCYTES PERCENT AUTO 14.4 % (16.0-40.0); MEAN CORPUSCULAR HEMOGLOBIN 30.2 pg (27.0-32.0); MEAN CORPUSCULAR HGB CONC 34.4 g/dL (31.0-37.0); MEAN CORPUSCULAR VOLUME 87.9 fL (80.0-98.0); MONOCYTES ABSOLUTE AUTO 0.3 K/uL (0.0-0.8); MONOCYTES PERCENT AUTO 4.6 % (0.0-15.0); NEUTROPHILS ABSOLUTE AUTO 4.8 K/uL (1.4-5.7); NEUTROPHILS PERCENT AUTO 78.8 % (48.0-80.0); NRBC ABSOLUTE 0 K/uL; PLATELET COUNT,PLT 221 K/uL (150-400); RED BLOOD CELL COUNT 5.36 M/uL (4.50-5.90); WHITE BLOOD CELL COUNT,WBC 6.13 K/uL (4.0-11.0)
[2022-08-09] MEDS ORDERED: Ondansetron 4 MG/2 ML SDV IVPUSH ONE (10:28)
[2022-08-09 10:38] LABS: LACTIC ACID 2.4 mmol/L (0.4-2.0)
[2022-08-09 10:44] LABS: A/G RATIO 1.2 (0.9-1.6); BILIRUBIN TOTAL 0.5 mg/dL (0.2-1.0); CALCIUM 9.4 mg/dL (8.5-10.1); CARBON DIOXIDE,CO2 23.3 mmol/L (21.0-32.0); CREATININE 1.8 mg/dL (0.8-1.3); EST CRCL DRUG DOSING (CG) 46.7 mL/min; POTASSIUM,K 4.7 mmol/L (3.5-5.1); PROTEIN TOTAL,TP 7.3 g/dL (6.4-8.2)
[2022-08-09] MEDS ORDERED: Iopamidol 755 MG/ML 500 ML Multipack Bottle IVPUSH ONE (12:08)
[2022-08-09] MEDS ORDERED: cefTRIAXone 1 GM in Sodium Chloride 0.9% 50 ML IV ONE (13:31)
[2022-08-09] MEDS ORDERED: Sodium Chloride 0.9% 2.5 ML Syringe FLUSH PRN (14:16)
[2022-08-09] MEDS ORDERED: Sodium Chloride 0.9% 10 ML Syringe FLUSH PRN (14:16)
[2022-08-09] MEDS ORDERED: Acetaminophen 325 MG Tab PO PRN (14:16)
[2022-08-09] MEDS ORDERED: Ondansetron 4 MG/2 ML SDV IVPUSH PRN (14:16)
[2022-08-09] MEDS ORDERED: 50% Dextrose in Water 50 ML Syringe IVPUSH PRN (14:33)
[2022-08-09] MEDS ORDERED: Glucagon,Human Recombinant 1 MG Vial IM PRN (14:33)
[2022-08-09] MEDS: Lactated Ringers 1,000 ML IV SCH ×2 (14:54→23:56)
[2022-08-09] MEDS ORDERED: Lactated Ringers 1,000 ML IV ONE (15:42)
[2022-08-09] MEDS: Insulin Aspart 100 Units/ML 3 ML Pen SUBCUT SCH (16:49)
[2022-08-09 19:28] LABS: LACTIC ACID 2.1 mmol/L (0.4-2.0)
[2022-08-10 05:47] LABS: BASOPHILS PERCENT AUTO 0.2 % (0.0-1.5); EOSINOPHILS ABSOLUTE AUTO 0.4 K/uL (0.0-0.7); EOSINOPHILS PERCENT AUTO 4.3 % (0.0-7.0); HEMATOCRIT 37.9 % (38.0-50.0); MEAN CORPUSCULAR HEMOGLOBIN 30.1 pg (27.0-32.0); MEAN CORPUSCULAR HGB CONC 34.3 g/dL (31.0-37.0); MEAN CORPUSCULAR VOLUME 87.7 fL (80.0-98.0); MONOCYTES ABSOLUTE AUTO 0.8 K/uL (0.0-0.8); MONOCYTES PERCENT AUTO 8.1 % (0.0-15.0); NEUTROPHILS ABSOLUTE AUTO 6.8 K/uL (1.4-5.7); NEUTROPHILS PERCENT AUTO 67.4 % (48.0-80.0); NRBC ABSOLUTE 0 K/uL; PLATELET COUNT,PLT 213 K/uL (150-400); RED BLOOD CELL COUNT 4.32 M/uL (4.50-5.90); WHITE BLOOD CELL COUNT,WBC 10.14 K/uL (4.0-11.0)
[2022-08-10 06:11] LABS: CALCIUM 8.5 mg/dL (8.5-10.1); CARBON DIOXIDE,CO2 25.4 mmol/L (21.0-32.0); CREATININE 1.3 mg/dL (0.8-1.3); EST CRCL DRUG DOSING (CG) 68.5 mL/min; POTASSIUM,K 4.2 mmol/L (3.5-5.1)
[2022-08-10] MEDS: Insulin Aspart 100 Units/ML 3 ML Pen SUBCUT SCH (07:24)
[2022-08-10] MEDS: Lactated Ringers 1,000 ML IV SCH (07:49)
[2022-08-10 10:31] VITALS: BP 132/63; PULSE 82
[2022-08-10] MEDS ORDERED: Sulfamethoxazole/Trimethoprim 800-160 MG Tab PO ONE (10:36)
== END 2022-08-10 10:42 | disposition home or self-care (01) ==
LOC: MW.ED 08:59 → MW.MS 13:50
PROVIDERS: ADMIT Internal Medicine; ATTEND Internal Medicine
DX: E86.0 Dehydration (principal); I95.1 Orthostatic hypotension; K52.9 Noninfective gastroenteritis and colitis, unspecified; N17.9 Acute kidney failure, unspecified; I10 Essential (primary) hypertension; E11.9 Type 2 diabetes mellitus without complications; N40.0 Benign prostatic hyperplasia without lower urinary tract symptoms; J44.9 Chronic obstructive pulmonary disease, unspecified; G47.30 Sleep apnea, unspecified; E03.9 Hypothyroidism, unspecified; E66.9 Obesity, unspecified; Z86.010 Personal history of colon polyps; F17.200 Nicotine dependence, unspecified, uncomplicated; Z88.0 Allergy status to penicillin; Z79.890 Hormone replacement therapy; Z79.899 Other long term (current) drug therapy; Z90.89 Acquired absence of other organs; Z68.41 Body mass index [BMI] 40.0-44.9, adult
CPT/HCPCS: 36415; 71045; 74177; 80048; 80053; 82947; 83605; 83690; 83735; 84443; 84484; 85025; 87040; 87045; 87046; 87154; 87324; 87449; 87899; 93005; 96361; 96374; 96375; 99285; A9270; G0378; J0696; J2405; J3490; J7030; J7120; Q9967; 87077; 87186